=== PATIENT | female | born 1935 | race Caucasian/White ===

== ENCOUNTER 2019-09-10 18:54 | Observation (INO) ==
[2019-09-10] MEDS ORDERED: Naloxone 0.4 MG/ML INJ IVP PRN (21:43)
[2019-09-10] MEDS ORDERED: D5% in Water 1,000 ML IVC PRN (22:49)
[2019-09-10] MEDS ORDERED: Dextrose Gel 15 GM/37.5 ML TUBE PO PRN ×2 (22:49)
[2019-09-10] MEDS ORDERED: *HR* Dextrose 50 % in Water (Syg) 50 ML SYRINGE IVP PRN (22:49)
[2019-09-11 01:01] LABS: Troponin I 0.08 ng/mL (< 0.04)
[2019-09-11 01:19] LABS: Thyroid Stimulating Hormone 0.024 mcIU/mL (0.340-5.600)
[2019-09-11] MEDS ORDERED: 0.9 % Sodium Chloride 1,000 ML IVC SCH (03:00)
[2019-09-11 05:20] LABS: Basophils % 0.2 %; Eosinophils % 0.1 %; Hematocrit 35.5 % (35.3-44.9); Hemoglobin 11.6 g/dL (11.5-15.4); Immature Granulocytes % 0.3 % (0-4); Lymphocytes # 0.8 K/mcL (0.6-4.6); Lymphocytes % 8.7 %; Mean Corpuscular HGB Conc 32.7 g/dL (31.6-35.5); Mean Corpuscular Hemoglobin 28.9 pg (28.0-33.3); Mean Corpuscular Volume 88.5 fL (83.0-100.0); Mean Platelet Volume 10.4 fL (9.4-12.4); Monocytes # 0.5 K/mcL (0.0-1.3); Monocytes % 6.1 %; Neutrophils # 7.3 K/mcL (1.6-8.9); Platelet Count 105 K/mcL (140-400); Red Blood Count 4.01 M/mcL (3.82-4.97); Red Cell Distribution Width 14.5 % (11.5-14.5); Segmented Neutrophils % 84.6 %; White Blood Count 8.6 K/mcL (4.3-11.1)
[2019-09-11 05:38] LABS: Calcium 8.7 mg/dL (8.6-10.3); Magnesium 1.6 mg/dL (1.6-2.6); Phosphorous 2.7 mg/dL (2.7-4.5); Potassium 3.6 mEq/L (3.5-5.1)
[2019-09-11 05:42] LABS: Troponin I 0.09 ng/mL (< 0.04)
[2019-09-11 05:51] LABS: Triiodothyronine (T3) Free 2.28 pg/mL (2.50-3.90)
[2019-09-11] MEDS ORDERED: *HR* Heparin 5,000 UNIT/ML VIAL SQ SCH ×2 (06:00→14:00)
[2019-09-11] MEDS: Insulin LISPRO 300 UNITS/3 ML VIAL SQ SCH ×3 (08:57→16:10)
[2019-09-11] MEDS ORDERED: Aspirin Enteric Coated 81 MG Tablet PO SCH (09:00)
[2019-09-11] MEDS ORDERED: DilTIAZem CD (24hr) 180 MG CAP.ER.24H PO SCH (09:00)
[2019-09-11 15:50] VITALS: BP 106/54
[2019-09-11] MEDS ORDERED: Insulin LISPRO 300 UNITS/3 ML VIAL SQ SCH (21:00)
[2019-09-12] MEDS ORDERED: Furosemide 20 MG TABLET PO SCH (09:00)
== END 2019-09-11 18:04 | disposition left against medical advice (07) ==
LOC: 2NENU → SUATTDRO 20:18 → 2ANU 09-11 02:21
PROVIDERS: ADMIT Internal Medicine; ATTEND Pharmacist

== ENCOUNTER 2021-04-11 19:54 | Observation (INO) ==
[2021-04-11] MEDS ORDERED: Acetaminophen 325 MG TABLET PO PRN (23:48)
[2021-04-11] MEDS ORDERED: Ondansetron 4 MG/2 ML VIAL IVP PRN (23:48)
[2021-04-11] MEDS ORDERED: Naloxone 0.4 MG/ML INJ IVP PRN (23:48)
[2021-04-11] MEDS ORDERED: *HR* Dextrose 50 % in Water (Syg) 50 ML SYRINGE IVP PRN (23:52)
[2021-04-11] MEDS ORDERED: D5% in Water 1,000 ML IVC PRN (23:52)
[2021-04-11] MEDS ORDERED: Dextrose Gel 15 GM/37.5 ML TUBE PO PRN ×2 (23:52)
[2021-04-12] MEDS ORDERED: Perflutren Lipid Microsphere 1.3 ML in 0.9 % Sodium Chloride 8.7 ML IVP PRN
[2021-04-12] MEDS: 0.9 % Sodium Chloride 1,000 ML IVC SCH ×2 (00:17→12:36)
[2021-04-12] MEDS ORDERED: Ipratropium/Albuterol Neb 3 ML IH PRN (00:39)
[2021-04-12] MEDS: Insulin LISPRO 300 UNITS/3 ML VIAL SUBQ SCH ×5 (01:05→20:26)
[2021-04-12 03:09] LABS: Basophils % 0.4 %; Eosinophils % 0.4 %; Hematocrit 29.7 % (35.3-44.9); Hemoglobin 9.1 g/dL (11.5-15.4); Immature Granulocytes % 0.4 % (0-4); Lymphocytes # 0.6 K/mcL (0.6-4.6); Lymphocytes % 21.8 %; Mean Corpuscular HGB Conc 30.6 g/dL (31.6-35.5); Mean Corpuscular Hemoglobin 27.3 pg (28.0-33.3); Mean Corpuscular Volume 89.2 fL (83.0-100.0); Mean Platelet Volume 9.9 fL (9.4-12.4); Monocytes # 0.3 K/mcL (0.0-1.3); Monocytes % 9.8 %; Neutrophils # 1.9 K/mcL (1.6-8.9); Platelet Count 121 K/mcL (140-400); Red Blood Count 3.33 M/mcL (3.82-4.97); Red Cell Distribution Width 13.7 % (11.5-14.5); Segmented Neutrophils % 67.2 %; White Blood Count 2.8 K/mcL (4.3-11.1)
[2021-04-12 03:25] LABS: Estimated Average Glucose 128 mg/dl; Hemoglobin A1C 6.1 %
[2021-04-12 03:30] LABS: Calcium 8.4 mg/dL (8.6-10.3); Magnesium 1.8 mg/dL (1.6-2.6); Potassium 4.1 mEq/L (3.5-5.1)
[2021-04-12] MEDS: *HR* Heparin 5,000 UNIT/ML VIAL SQ SCH ×4 (05:28→21:02)
[2021-04-12] MEDS: Aspirin 81 MG TAB.CHEW PO SCH (12:37)
[2021-04-12 18:38] LABS: Bacteria,Urine Few per hpf (None-Few); Bilirubin,Urine Negative (Negative); Blood,Urine Trace (Negative); Clarity,Urine Turbid (Clear); Color,Urine Light-Yellow (Yellow); Glucose,Urine (UA) Normal (Normal); Granular Casts,Urine Few per lpf (None Seen); Hyaline Casts,Urine Few per lpf (None Seen); Ketones,Urine Negative (Negative); Leukocyte Esterase,Urine Large (Negative); Mucus,Urine Few per lpf (None-Few); Nitrite,Urine Positive (Negative); PH,Urine 5.5 pH Units (5.0-8.0); Protein,Urine 30 mg/dL (Neg-Trace); RBC,Urine 0-3 per hpf (0-3); Specific Gravity,Urine 1.017 (1.010-1.025); Squamous Epithelial Cell,Urine Few per hpf (None-Few); Urobilinogen,Urine Normal (Normal); WBC,Urine 50-100 per hpf (0-3)
[2021-04-12] MEDS ORDERED: Saline Nasal Spray 44 ML BOTTLE NS PRN (21:04)
[2021-04-13 03:25] LABS: Basophils % 0.6 %; Eosinophils % 0.6 %; Hematocrit 29.8 % (35.3-44.9); Hemoglobin 9.1 g/dL (11.5-15.4); Immature Granulocytes % 0.6 % (0-4); Lymphocytes # 0.8 K/mcL (0.6-4.6); Lymphocytes % 25.8 %; Mean Corpuscular HGB Conc 30.5 g/dL (31.6-35.5); Mean Corpuscular Hemoglobin 27.2 pg (28.0-33.3); Mean Platelet Volume 9.8 fL (9.4-12.4); Monocytes # 0.2 K/mcL (0.0-1.3); Monocytes % 7.4 %; Neutrophils # 2.1 K/mcL (1.6-8.9); Platelet Count 108 K/mcL (140-400); Red Blood Count 3.35 M/mcL (3.82-4.97); White Blood Count 3.3 K/mcL (4.3-11.1)
[2021-04-13 03:42] LABS: Calcium 8.1 mg/dL (8.6-10.3); Potassium 4.4 mEq/L (3.5-5.1)
[2021-04-13] MEDS: *HR* Heparin 5,000 UNIT/ML VIAL SQ SCH ×3 (06:32→21:26)
[2021-04-13] MEDS ORDERED: Isovue-370 500 ML BOTTLE IVP ONE (08:12)
[2021-04-13] MEDS: Insulin LISPRO 300 UNITS/3 ML VIAL SUBQ SCH ×4 (08:19→21:27)
[2021-04-13] MEDS: Aspirin 81 MG TAB.CHEW PO SCH (08:21)
[2021-04-14 05:04] LABS: Basophils % 0.2 %; Eosinophils % 0.2 %; Hematocrit 30.3 % (35.3-44.9); Hemoglobin 9.6 g/dL (11.5-15.4); Immature Granulocytes % 0.5 % (0-4); Lymphocytes # 0.7 K/mcL (0.6-4.6); Lymphocytes % 17.1 %; Mean Corpuscular HGB Conc 31.7 g/dL (31.6-35.5); Mean Corpuscular Hemoglobin 28.1 pg (28.0-33.3); Mean Corpuscular Volume 88.6 fL (83.0-100.0); Mean Platelet Volume 10.2 fL (9.4-12.4); Monocytes # 0.3 K/mcL (0.0-1.3); Monocytes % 7.7 %; Neutrophils # 3.2 K/mcL (1.6-8.9); Platelet Count 114 K/mcL (140-400); Red Blood Count 3.42 M/mcL (3.82-4.97); Red Cell Distribution Width 13.9 % (11.5-14.5); Segmented Neutrophils % 74.3 %; White Blood Count 4.3 K/mcL (4.3-11.1)
[2021-04-14 05:17] LABS: Calcium 8.3 mg/dL (8.6-10.3); Potassium 4.4 mEq/L (3.5-5.1)
[2021-04-14] MEDS: *HR* Heparin 5,000 UNIT/ML VIAL SQ SCH ×3 (05:28→19:46)
[2021-04-14] MEDS: Insulin LISPRO 300 UNITS/3 ML VIAL SUBQ SCH ×4 (07:40→20:15)
[2021-04-14] MEDS: Aspirin 81 MG TAB.CHEW PO SCH (07:44)
[2021-04-14] MEDS: cephALEXin 500 MG CAPSULE PO SCH ×2 (10:33→19:46)
[2021-04-15] MEDS: *HR* Heparin 5,000 UNIT/ML VIAL SQ SCH ×2 (06:04→13:28)
[2021-04-15 06:13] LABS: Basophils % 0.3 %; Hematocrit 32.5 % (35.3-44.9); Hemoglobin 10.5 g/dL (11.5-15.4); Immature Granulocytes % 0.3 % (0-4); Lymphocytes # 0.6 K/mcL (0.6-4.6); Lymphocytes % 18.1 %; Mean Corpuscular HGB Conc 32.3 g/dL (31.6-35.5); Mean Corpuscular Hemoglobin 28.2 pg (28.0-33.3); Mean Corpuscular Volume 87.1 fL (83.0-100.0); Mean Platelet Volume 10.6 fL (9.4-12.4); Monocytes # 0.2 K/mcL (0.0-1.3); Monocytes % 6.1 %; Neutrophils # 2.6 K/mcL (1.6-8.9); Platelet Count 113 K/mcL (140-400); Red Blood Count 3.73 M/mcL (3.82-4.97); Red Cell Distribution Width 13.7 % (11.5-14.5); Segmented Neutrophils % 75.2 %; White Blood Count 3.4 K/mcL (4.3-11.1)
[2021-04-15 06:28] LABS: Calcium 8.3 mg/dL (8.6-10.3); Potassium 4.3 mEq/L (3.5-5.1)
[2021-04-15] MEDS: Insulin LISPRO 300 UNITS/3 ML VIAL SUBQ SCH ×3 (08:03→16:36)
[2021-04-15] MEDS: Aspirin 81 MG TAB.CHEW PO SCH (09:21)
[2021-04-15] MEDS: cephALEXin 500 MG CAPSULE PO SCH (09:22)
[2021-04-15 14:50] VITALS: BP 133/69; PULSE 67; TEMP 100.1; O2SAT 93
== END 2021-04-15 17:10 | disposition home or self-care (01) ==
LOC: 3NENU → INTOOBSV 23:27 → OBSVTOIN 23:27 → SUATTDRO 23:27
PROVIDERS: ADMIT Internal Medicine; ATTEND Family Medicine

== ENCOUNTER 2021-04-25 15:11 | Observation (INO) ==
[2021-04-25] MEDS ORDERED: Ondansetron 4 MG/2 ML VIAL IVP PRN (23:44)
[2021-04-25] MEDS ORDERED: Naloxone 0.4 MG/ML INJ IVP PRN (23:44)
[2021-04-25] MEDS ORDERED: Melatonin 3 MG TABLET PO PRN (23:44)
[2021-04-26] MEDS ORDERED: D5% in Water 1,000 ML IVC PRN (00:33)
[2021-04-26] MEDS ORDERED: Dextrose Gel 15 GM/37.5 ML TUBE PO PRN ×2 (00:33)
[2021-04-26] MEDS ORDERED: *HR* Dextrose 50 % in Water (Syg) 50 ML SYRINGE IVP PRN (00:33)
[2021-04-26 03:23] LABS: Hematocrit 31.3 % (35.3-44.9); Hemoglobin 9.5 g/dL (11.5-15.4); Mean Corpuscular HGB Conc 30.4 g/dL (31.6-35.5); Mean Corpuscular Hemoglobin 26.1 pg (28.0-33.3); Mean Platelet Volume 10.7 fL (9.4-12.4); Platelet Count 138 K/mcL (140-400); Red Blood Count 3.64 M/mcL (3.82-4.97); Red Cell Distribution Width 13.3 % (11.5-14.5)
[2021-04-26 03:34] LABS: Calcium 8.3 mg/dL (8.6-10.3); Potassium 3.9 mEq/L (3.5-5.1)
[2021-04-26 03:46] LABS: Troponin I 0.1 ng/mL (< 0.04)
[2021-04-26 03:52] LABS: Thyroid Stimulating Hormone 0.376 mcIU/mL (0.340-5.600)
[2021-04-26] MEDS ORDERED: *HR* Enoxaparin 60 MG/0.6 ML SYRINGE SQ SCH (06:00)
[2021-04-26] MEDS: Insulin LISPRO 300 UNITS/3 ML VIAL SUBQ SCH ×3 (07:40→17:38)
[2021-04-27 01:35] LABS: Hematocrit 32.6 % (35.3-44.9); Hemoglobin 10.1 g/dL (11.5-15.4); Mean Corpuscular Hemoglobin 26.7 pg (28.0-33.3); Mean Corpuscular Volume 86.2 fL (83.0-100.0); Mean Platelet Volume 10.8 fL (9.4-12.4); Platelet Count 164 K/mcL (140-400); Red Blood Count 3.78 M/mcL (3.82-4.97); Red Cell Distribution Width 13.5 % (11.5-14.5); White Blood Count 9.1 K/mcL (4.3-11.1)
[2021-04-27 01:54] LABS: Calcium 8.1 mg/dL (8.6-10.3)
[2021-04-27] MEDS ORDERED: *HR* Enoxaparin 60 MG/0.6 ML SYRINGE SQ SCH (06:00)
[2021-04-27] MEDS: Insulin LISPRO 300 UNITS/3 ML VIAL SUBQ SCH ×3 (08:18→16:52)
[2021-04-27] MEDS: Aspirin Enteric Coated 81 MG Tablet PO SCH (08:20)
[2021-04-27] MEDS ORDERED: 0.9 % Sodium Chloride 500 ML IV ONE (12:09)
[2021-04-27] MEDS: Apixaban 2.5 MG TABLET PO SCH (20:35)
[2021-04-28 02:47] LABS: Hematocrit 26.2 % (35.3-44.9); Hemoglobin 8.1 g/dL (11.5-15.4); Immature Platelets 4.6 % (1.1-6.1); Mean Corpuscular HGB Conc 30.9 g/dL (31.6-35.5); Mean Corpuscular Hemoglobin 26.7 pg (28.0-33.3); Mean Corpuscular Volume 86.5 fL (83.0-100.0); Mean Platelet Volume 11.2 fL (9.4-12.4); Red Blood Count 3.03 M/mcL (3.82-4.97); Red Cell Distribution Width 13.7 % (11.5-14.5); White Blood Count 6.1 K/mcL (4.3-11.1)
[2021-04-28 02:58] LABS: Calcium 7.6 mg/dL (8.6-10.3); Potassium 3.6 mEq/L (3.5-5.1)
[2021-04-28] MEDS: Insulin LISPRO 300 UNITS/3 ML VIAL SUBQ SCH ×3 (07:25→16:56)
[2021-04-28] MEDS: Aspirin Enteric Coated 81 MG Tablet PO SCH (07:51)
[2021-04-28] MEDS: Apixaban 2.5 MG TABLET PO SCH ×2 (07:51→20:56)
[2021-04-28 21:26] LABS: Bilirubin,Urine Negative (Negative); Blood,Urine Negative (Negative); Clarity,Urine Clear (Clear); Color,Urine Yellow (Yellow); Glucose,Urine (UA) Normal (Normal); Ketones,Urine Negative (Negative); Leukocyte Esterase,Urine Small (Negative); Nitrite,Urine Negative (Negative); PH,Urine 5.5 pH Units (5.0-8.0); Protein,Urine 30 mg/dL (Neg-Trace); Specific Gravity,Urine 1.023 (1.010-1.025); Urobilinogen,Urine Normal (Normal)
[2021-04-29 02:41] LABS: Mean Corpuscular Hemoglobin 26.9 pg (28.0-33.3)
[2021-04-29 02:43] LABS: Hematocrit 22.5 % (35.3-44.9); Immature Platelets 4.9 % (1.1-6.1); Mean Corpuscular HGB Conc 31.1 g/dL (31.6-35.5); Mean Corpuscular Volume 86.5 fL (83.0-100.0); Mean Platelet Volume 10.8 fL (9.4-12.4); Red Blood Count 2.6 M/mcL (3.82-4.97); Red Cell Distribution Width 13.6 % (11.5-14.5); White Blood Count 6.7 K/mcL (4.3-11.1)
[2021-04-29 03:01] LABS: Calcium 7.8 mg/dL (8.6-10.3); Potassium 3.6 mEq/L (3.5-5.1)
[2021-04-29] MEDS: Aspirin Enteric Coated 81 MG Tablet PO SCH (08:13)
[2021-04-29] MEDS: Insulin LISPRO 300 UNITS/3 ML VIAL SUBQ SCH ×3 (08:24→15:44)
[2021-04-29 08:27] LABS: Hematocrit 27.4 % (35.3-44.9); Hemoglobin 8.4 g/dL (11.5-15.4)
[2021-04-29 08:28] LABS: Immature Reticulocyte % 31.9 % (11.0-38.0); Retculocyte # 0.1 M/mcL (0.05-0.10); Reticulocyte % 3.3 % (1.6-2.8)
[2021-04-29 08:40] LABS: Bilirubin,Direct 0.2 mg/dL (0.0-0.2); Bilirubin,Indirect 0.7 mg/dL (0.0-1.0); Bilirubin,Total 0.9 mg/dL (0.3-1.0)
[2021-04-29 13:00] LABS: Bilirubin,Urine Negative (Negative); Blood,Urine Trace (Negative); Clarity,Urine Clear (Clear); Color,Urine Yellow (Yellow); Glucose,Urine (UA) Normal (Normal); Ketones,Urine Negative (Negative); Leukocyte Esterase,Urine Trace (Negative); Mucus,Urine Few per lpf (None-Few); Nitrite,Urine Negative (Negative); PH,Urine 5.5 pH Units (5.0-8.0); Protein,Urine 30 mg/dL (Neg-Trace); RBC,Urine 0-3 per hpf (0-3); Specific Gravity,Urine 1.023 (1.010-1.025); Squamous Epithelial Cell,Urine Few per hpf (None-Few); Urobilinogen,Urine Normal (Normal); WBC,Urine 0-3 per hpf (0-3)
[2021-04-29] MEDS ORDERED: Haloperidol Lactate 5 MG/ML VIAL IVP ONE ×2 (18:15→22:05)
[2021-04-29 21:10] VITALS: O2SAT 96
[2021-04-29] MEDS: Apixaban 5 MG TABLET PO SCH (21:48)
[2021-04-30 07:13] VITALS: BP 120/78; PULSE 77; TEMP 97.8
[2021-04-30] MEDS: Insulin LISPRO 300 UNITS/3 ML VIAL SUBQ SCH ×2 (07:38→11:16)
[2021-04-30] MEDS: Apixaban 5 MG TABLET PO SCH (08:27)
[2021-04-30] MEDS: Aspirin Enteric Coated 81 MG Tablet PO SCH (08:27)
[2021-04-30 09:36] LABS: Hematocrit 23.6 % (35.3-44.9); Hemoglobin 7.1 g/dL (11.5-15.4); Mean Corpuscular HGB Conc 30.1 g/dL (31.6-35.5); Mean Corpuscular Hemoglobin 27.1 pg (28.0-33.3); Mean Corpuscular Volume 90.1 fL (83.0-100.0); Mean Platelet Volume 11.3 fL (9.4-12.4); Red Blood Count 2.62 M/mcL (3.82-4.97)
[2021-04-30 09:38] LABS: Eosinophils % 0.3 %; Immature Granulocytes % 0.7 % (0-4); Immature Platelets 5.6 % (1.1-6.1); Lymphocytes # 0.5 K/mcL (0.6-4.6); Lymphocytes % 7.9 %; Monocytes # 0.4 K/mcL (0.0-1.3); Monocytes % 6.2 %; Neutrophils # 5.2 K/mcL (1.6-8.9); Platelet Count 105 K/mcL (140-400); Red Cell Distribution Width 14.2 % (11.5-14.5); Segmented Neutrophils % 84.9 %; White Blood Count 6.1 K/mcL (4.3-11.1)
[2021-04-30 09:52] LABS: Potassium 3.6 mEq/L (3.5-5.1)
[2021-04-30 10:38] LABS: Hemoglobin 7.7 g/dL (11.5-15.4)
== END 2021-04-30 15:04 ==
LOC: 3BNU → SUATTDRO 22:50 → 3BNU 04-29 14:28
PROVIDERS: ADMIT Internal Medicine; ATTEND Internal Medicine